=== PATIENT | male | born 1990 | race Caucasian/White ===

== ENCOUNTER 2018-08-15 01:47 | Outpatient (CLI) | payer BC, SELFPAY ==
--- NOTE | 2018-08-15 01:50 | DI.US_ITS ---
SYMPTOMS/DIAGNOSIS: SKIN NODULE, R22.9, PT FEELS LUMP ON TESTIS X 3 WEEKS, ONLY HAS 1 TESTIS SCROTAL ULTRASOUND: The left testicle is absent. The right testicle measures 5.4 x 2.0 x 3.5 cm and is acoustically homogeneous with good color flow. No mass or cyst is seen. The right epididymis measures 11 x 10 x 7 mm and is homogeneous with normal color flow. Note is made of what appears to represent multiple small right epididymal head cysts, the largest of which measures 5 x 2 x 4 mm. SUMMARY: Absence of the left testicle is noted. The right testicle appears normal. There is no evidence of a mass, cyst or torsion. The right epididymis is intact with note made of small epididymal cysts.
== END 2018-08-15 02:07 ==
PROVIDERS: PCP Nurse Practitioner Family; Visit Provider Nurse Practitioner Family
DX: Z90.79 Acquired absence of other genital organ(s) (principal); N50.9 Disorder of male genital organs, unspecified; N50.3 Cyst of epididymis
CPT/HCPCS: 76870

== ENCOUNTER 2021-08-11 20:11 | Outpatient (REF) | payer OTHER, SELFPAY ==
[2021-08-11 21:14] LABS: Abs Immature Grans 0.01 10^3/uL (0.0-0.06); Absolute Basophil Count 0.04 10^3/uL (0.0-0.2); Absolute Eosinophil Count 0.19 10^3/uL (0.0-0.7); Absolute Lymphocyte Count 1.45 10^3/uL (1.2-3.4); Absolute Monocyte Count 0.47 10^3/uL (0.1-0.8); Absolute Neutrophil Count 2.19 10^3/uL (1.2-6.7); Basophils % 0.9; Eosinophils % 4.4; HCT 44.9 % (40.0-50.0); Immature Grans % 0.2; Lymphocytes % 33.3; MCH 29.8 pg (27.0-33.0); MCHC 33.4 % (32.0-36.0); MCV 89.3 fL (80-95); MPV 11.6 fL (8.0-11.0); Monocytes % 10.8; Neutrophils % 50.4; Nucleated RBC 0 %; Platelet Count 270 10^3/uL (130-400); RBC 5.03 10^6/uL (4.36-5.78); RDW 11.9 % (11.8-14.1); RDW-SD 38.6 fL; WBC 4.35 10^3/uL (4.4-10.8)
[2021-08-11 21:30] LABS: ALT 39 U/L (16-63); AST 25 U/L (15-37); Albumin 4.6 g/dL (3.4-5.0); Alkaline Phosphatase 79 U/L (46-116); Anion Gap 11.3 mmol/L (3-11); BUN 9 mg/dL (7-18); Bilirubin, Total 0.5 mg/dL (0.2-1.0); CO2 27.7 mmol/L (21.0-32.0); CREATININE 0.9 mg/dL (0.70-1.30); Calcium 9.1 mg/dL (8.5-10.1); Chloride 103 mmol/L (98-107); Glucose 85 mg/dL (74-106); Potassium 4.3 mmol/L (3.5-5.1); Sodium 142 mmol/L (136-145); Total Protein 7.5 g/dL (6.4-8.2)
== END 2021-08-11 20:12 | disposition home or self-care (01) ==
LOC: NCHCN 20:11
PROVIDERS: PCP Nurse Practitioner Family; Visit Provider Nurse Practitioner Family
DX: R59.0 Localized enlarged lymph nodes (principal)
CPT/HCPCS: 80053; 85025

== ENCOUNTER 2024-11-18 20:11 | Emergency (ER) | payer BC, SELFPAY ==
--- NOTE | 2024-11-18 20:15 | RT.EKG_ITS ---
APPROVED REPORT Exam: Resting ECG Reason for Exam: yohannes Patient Location: E HR:78 bpm ECG Measurements Heart Rate [address] 189 P -1 QRSd 87 QRS 15 QT 349 T 27 QTc 398 Conclusion Sinus rhythm. 78 normal axis no stmei
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
[2024-11-18 20:16] VITALS: BP 118/61; PULSE 89; RESP 16; TEMP 36.9; O2SAT 98
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
[2024-11-18] MEDS: Diph,Pertuss(Acell),Tet Vac/Pf 0.5 ML SYR IM (20:38)
[2024-11-18] MEDS: Normal Saline 1,000 ML 1000 ML IV (20:39)
[2024-11-18] MEDS: ceFAZolin 1 GM/50 ML BAG IVPB (20:39)
[2024-11-18] MEDS: Lidocaine/Epinephri/Tetracaine Topical Gel 3 ML TP (20:40)
[2024-11-18 20:42] VITALS: BP 121/58; BP 87/69; BP 97/63; PULSE 84; PULSE 85; PULSE 97
[2024-11-18 21:16] LABS: Abs Immature Grans 0.01 10^3/uL (0.0-0.06); Absolute Basophil Count 0.04 10^3/uL (0.0-0.2); Absolute Eosinophil Count 0.06 10^3/uL (0.0-0.7); Absolute Lymphocyte Count 1.66 10^3/uL (1.2-3.4); Absolute Monocyte Count 0.56 10^3/uL (0.1-0.8); Absolute Neutrophil Count 3.51 10^3/uL (1.2-6.7); Basophils % 0.7 %; HCT 39.9 % (40.0-50.0); HGB 13.6 g/dL (13.5-17.5); Immature Grans % 0.2 %; Lymphocytes % 28.4 %; MCH 29.8 pg (27.0-33.0); MCHC 34.1 % (32.0-36.0); MCV 88 fL (80-95); MPV 10.3 fL (8.0-11.0); Monocytes % 9.6 %; Neutrophils % 60.1 %; Platelet Count 228 10^3/uL (130-400); RBC 4.56 10^6/uL (4.36-5.78); RDW 12.2 % (11.8-14.1); RDW-SD 39.3 fL; WBC 5.84 10^3/uL (4.4-10.8)
[2024-11-18 21:32] LABS: ALT 41 U/L (16-63); AST 21 U/L (15-37); Albumin 3.7 g/dL (3.4-5.0); Alkaline Phosphatase 68 U/L (46-116); Anion Gap 9.7 mmol/L (3-11); BUN 15 mg/dL (7-18); Bilirubin, Total 0.2 mg/dL (0.2-1.0); CO2 28.3 mmol/L (21.0-32.0); Calcium 8.2 mg/dL (8.5-10.1); Chloride 103 mmol/L (98-107); Estimated GFR 103.19 (mL/min/1.73m2); Glucose 105 mg/dL (74-106); Potassium 3.7 mmol/L (3.5-5.1); Sodium 141 mmol/L (136-145); Total Protein 6.6 g/dL (6.4-8.2)
[2024-11-18 21:35] VITALS: BP 125/73; PULSE 87
[2024-11-18] MEDS: Bacitracin 1 PACKET TP (22:01)
[2024-11-18 22:03] VITALS: BP 114/72; BP 114/77; BP 125/64; PULSE 82; PULSE 83; PULSE 87
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
== END 2024-11-18 22:26 | disposition home or self-care (01) ==
PROVIDERS: Emergency Provider Emergency Medicine; PCP Nurse Practitioner Family
DX: S81.812A Laceration without foreign body, left lower leg, initial encounter (principal); S80.12XA Contusion of left lower leg, initial encounter; S40.022A Contusion of left upper arm, initial encounter; V86.06XA Driver of dirt bike or motor/cross bike injured in traffic accident, initial encounter; Z23 Encounter for immunization
CPT/HCPCS: 12002; 36415; 80053; 90715; 93005; 96365; 99285; 73590; 85025; 93010; J0690